=== PATIENT | female | born 1945 | race African-American/Black ===

== ENCOUNTER 2016-12-09 12:01 | Day surgery (SDC) | payer OTHER ==
[~2016-12-09] VITALS: Ht 165.1 cm; Wt 137.4 kg
[2016-12-09] VITALS (8 sets, daily range): BP systolic 148–161
[~2016-12-09 12:01] MED LIST: CEFAZOLIN 1 GM IVPB PREMIX 50 ML IV ONE
[2016-12-09] MEDS ORDERED: LR 1,000 ML IV.SOLN IV ONE (12:02)
[2016-12-09] MEDS ORDERED: WATER FOR IRRIGATION,STERILE 1,000 ML IRRIG.SOLN IR ONE (12:02)
[2016-12-09] MEDS ORDERED: SEVOFLURANE 15 MIN GAS INH ONE (12:02)
[2016-12-09] MEDS ORDERED: ONDANSETRON HCL 4 MG/2 ML VIAL IVP ONE (12:02)
[2016-12-09] MEDS ORDERED: KETOROLAC TROMETHAMINE 30 MG VIAL IVP ONE (12:02)
[2016-12-09] MEDS ORDERED: PROPOFOL 200MG/ 20ML VIAL (DIPRIVAN) IV ONE (12:02)
[2016-12-09] MEDS ORDERED: MIDAZOLAM HCL 5 MG/ML VIAL (VERSED) IV ONE (12:02)
[2016-12-09] MEDS ORDERED: fentaNYL CITRATE/PF 100 MCG/2 ML AMP IVP ONE (12:02)
[2016-12-09] MEDS ORDERED: LIP10 PO (12:52)
[2016-12-09] MEDS ORDERED: HYDR-4023 PO (12:52)
[2016-12-09] MEDS ORDERED: METO-442 PO (12:52)
[2016-12-09] MEDS ORDERED: LOSA100T11 PO (12:52)
[2016-12-09] MEDS ORDERED: LR 1,000 ML IV SCH (14:11)
[2016-12-09] MEDS ORDERED: HYDROmorphone 2 MG/ML VIAL IVP PRN ×2 (14:15)
[2016-12-09] MEDS ORDERED: ONDANSETRON HCL 4 MG/2 ML VIAL IVP PRN ×2 (14:15→17:00)
[2016-12-09] MEDS ORDERED: HYDROmorphone 1 MG INJ. 1 MG/ML AMPUL IVP PRN ×2 (14:15→17:00)
[2016-12-09] MEDS ORDERED: MEPERIDINE HCL/PF 25 MG/ML DISP.SYRIN IVP PRN ×2 (14:15)
[2016-12-09] MEDS ORDERED: ACETAMINOPHEN 325 MG TABLET PO PRN (17:00)
[2016-12-09] MEDS ORDERED: HYDROcodone/ACETAMIN 5-325 MG TAB (NORCO/ VICODIN) PO PRN ×2 (17:00)
[2016-12-09] MEDS ORDERED: HYDROmorphone 1 MG INJ. 1 MG/ML AMPUL ONE (17:22)
[2016-12-09] MEDS: D5/0.45 NS 1,000 ML IV SCH (18:40)
[2016-12-09] MEDS: CEFAZOLIN 1 GM IVPB PREMIX 50 ML IV SCH (18:55)
[2016-12-09] MEDS: METOPROLOL TARTRATE 50 MG TABLET PO SCH (21:42)
[2016-12-09] MEDS: FAMOTIDINE PF 20 MG/2 ML VIAL IVP SCH (21:42)
[2016-12-10 01:09] VITALS: BP_SYST 161
[2016-12-10] MEDS: CEFAZOLIN 1 GM IVPB PREMIX 50 ML IV SCH (01:13)
[2016-12-10 03:23] VITALS: BP_SYST 161
[2016-12-10] MEDS: D5/0.45 NS 1,000 ML IV SCH (06:08)
[2016-12-10 08:00] VITALS: BP_SYST 157
[2016-12-10] MEDS: METOPROLOL TARTRATE 50 MG TABLET PO SCH (08:29)
[2016-12-10] MEDS: FAMOTIDINE PF 20 MG/2 ML VIAL IVP SCH (08:36)
[2016-12-10] MEDS ORDERED: ENOXAPARIN SODIUM 30 MG/0.3 ML SYRINGE SUBCUT SCH (09:00)
[2016-12-10] MEDS ORDERED: HYDROCHLOROTHIAZIDE 25 MG TABLET (HCTZ) PO SCH (09:00)
[2016-12-10] MEDS ORDERED: LOSARTAN POTASSIUM 50 MG TABLET (COZAAR) PO SCH (09:00)
[2016-12-10] MEDS ORDERED: ATORVASTATIN 10 MG TABLET PO SCH (09:00)
[2016-12-10 09:24] VITALS: BP_SYST 157
== END 2016-12-10 09:45 | disposition home or self-care (01) ==
LOC: SDS 12:01 → SMU 12:01 → EDSTATUS 13:30 → SDS 12-10 09:45
PROVIDERS: ATTEND Colon & Rectal Surgery
DX: C50.912 Malignant neoplasm of unspecified site of left female breast (principal); C50.911 Malignant neoplasm of unspecified site of right female breast; E78.5 Hyperlipidemia, unspecified; I10 Essential (primary) hypertension; I44.7 Left bundle-branch block, unspecified; E66.01 Morbid (severe) obesity due to excess calories; G62.9 Polyneuropathy, unspecified; Z98.890 Other specified postprocedural states; Z80.0 Family history of malignant neoplasm of digestive organs; Z80.1 Family history of malignant neoplasm of trachea, bronchus and lung; Z87.891 Personal history of nicotine dependence; Z68.42 Body mass index [BMI] 45.0-49.9, adult; Z79.899 Other long term (current) drug therapy; Z88.8 Allergy status to other drugs, medicaments and biological substances
CPT/HCPCS: 19303; 87081; 88307; 88309; 94010; J0690; J1170; J1650; J1885; J2250; J2405; J2704; J3010; J3490 ×2; J7120